=== PATIENT | male | born 1945 ===

== ENCOUNTER 2021-06-07 07:59 | Day surgery (SDC) | payer MEDICARE, BC ==
[~2021-06-07] VITALS: Ht 177.8 cm; Wt 80.0 kg
[2021-06-07] VITALS (11 sets, daily range): BP systolic 111–129; BP diastolic 59–78; PULSE 46–75; TEMP 97.9–98.3
[2021-06-07] MEDS ORDERED: PROVENTIL0.09 MG/A1 IH (09:03)
[2021-06-07] MEDS ORDERED: SINGULAIR 110 MG/TAB PO (09:04)
[2021-06-07] MEDS ORDERED: 00186-0370-20 IH (09:05)
[2021-06-07] MEDS ORDERED: FASENRA30 MG/1 ML SQ (09:21)
[2021-06-07] MEDS ORDERED: PYRIDIUM 100MG100 MG PO (11:03)
--- NOTE | 2021-06-07 12:11 | NUR ---
PT TO ROOM 347 PER BED WITH REPORT FROM MICHAEL PIE CHEF @[id number]. PT IS A/O X4, LUNGS CTA, VSS, IV TO RFA. CBI RUNNING TO TERRELL WITH CLEAR FLUID IN BAG. 3750 CREDIT FOR FLUIDS. PT DENIES PAIN. TERRELL TO DD WITH TENSION TAPE PLACED TO RIGHT INNER THIGH. IV TO RFA.
[2021-06-08 00:33] VITALS: BP 118/51; PULSE 68; TEMP 98.7
--- NOTE | 2021-06-08 01:32 | NUR ---
PT RESTING QUIETLY IN BED WITH EYES CLOSED. PT'S IV WAS SALINE LOCKED @ 2100, HAS BEEN TAKING ADEQUATE PO INTAKE WITH NO PROBLEMS. HAD SANDWICH TO EAT FOR DINNER LAST NIGHT. PT HAD BRIEFLY HAD UPPER EPIGASTRIC/CHEST PAIN BEFORE EATING LAST NIGHT ET LYING SUPINE, RATED PAIN 2/10 ET DESCRIBED DULL. PT STATED THAT HE HAS OCCASIONALLY HAD ACID REFLUX IN PAST. PAIN WAS RELIEVED AFTER PT'S HOB WAS ELEVATED, HAD EATEN ET REPOSITIONED IN BED. PT HAS BEEN EDUCATED ON FALL PRECAUTIONS, VERBALIZES UNDERSTNADING. CBI IS RUNNING @ A MODERATE/SLOW RATE, URINE IS PINK WITH OCCASIONAL SMALL CLOTS SEEN. PT DENIES ANY PAIN @ THIS TIME. RESPIRATIONS UNLABORED, CALL LIGHT WITHIN REACH.
[2021-06-08 04:26] VITALS: BP 121/57; PULSE 77; TEMP 97.8
--- NOTE | 2021-06-08 05:28 | NUR ---
PT IS AWAKE, RESTING QUIETLY IN BED. CBI INFUSING @ A MODERATELY SLOW RATE, URINE IS PINK. PT IS TOLERATING PO INTAKE WELL, DENIES PAIN. PT HAS REPOSITIONED SELF IN BED DURING NIGHT WITH NO PROBLEMS. DENIES OTHER NEEDS. RESPIRATIONS UNLABORED. CALL LIGHT WITHIN REACH.
[2021-06-08 07:00] VITALS: BP 117/64; PULSE 72; TEMP 98.3
--- NOTE | 2021-06-08 07:15 | NUR ---
Shift assessment completed. INT intact with no signs of redness or swelling. Broussard catheter in place with 1425mL of mcbride red output. CBI infusing at a slow rate. No pain reported. Patient has a good appetite.
--- NOTE | 2021-06-08 08:20 | NUR ---
Primed bladder with 450 ml CBI irrigant. 36mL removed from balloon. Broussard catheter discontinued with balloon intact. Patient tolerated well. Instructed patient to drink fluids and report voiding. Discussed purpose of six bottle routine.
--- NOTE | 2021-06-08 09:45 | NUR ---
First void following sun catheter removal with 260 mL of red urine with a clot noted. Patient has increased oral intake of water.
[2021-06-08 10:40] VITALS: BP 118/60; PULSE 64; TEMP 97.8
--- NOTE | 2021-06-08 11:23 | NUR ---
SW met with the patient to discuss discharge plan. The patient lives in [place] with his , Lyla (ph#[phone]). He reports independence with ADLs and does not have any DME. The patient's PCP is Dr. Karlee Magana and he receives his medications from [facility]. He reports no difficulties obtaining his meds. The patient does not have a DPOA-HC and he was not interested in completing one at this time. The patient plans to return home with his upon discharge. No additional needs at this time. *Discharge plan: home with *
--- NOTE | 2021-06-08 13:30 | NUR ---
Initial visit; Patient and his thanked [employer] for looking in on him and making sure he is doing well. Patient preparing to be discharged and wished [employer] well.
--- NOTE | 2021-06-08 14:53 | NUR ---
DISCHARGE INSTRUCTIONS REVIEWED WITH PT AND . QUESTIONS SOLICITED AND ANSWERED. PT LEFT UNIT AMBULATORY WITH STAFF.
== END 2021-06-08 14:54 | disposition home or self-care (01) ==
LOC: SDCO 07:59 → SURG 11:50 → SDCO 13:00
DX: N40.1 Benign prostatic hyperplasia with lower urinary tract symptoms (principal); R39.12 Poor urinary stream; R39.198 Other difficulties with micturition; R35.1 Nocturia; C61 Malignant neoplasm of prostate; J45.909 Unspecified asthma, uncomplicated; Z79.899 Other long term (current) drug therapy; Z87.891 Personal history of nicotine dependence
CPT/HCPCS: OP; J0690; J2250; J2405; J2704; J3010; J3480; J7120